=== PATIENT | female | born 1985 | race Caucasian/White ===

== ENCOUNTER 2019-03-02 17:12 | Emergency (ER) | payer OTHER ==
[~2019-03-02] VITALS: Ht 162.6 cm; Wt 90.7 kg
[2019-03-02 17:27] LABS: ABSOLUTE NEUTROPHILS 4.3 thou/uL (1.4-8.2); BASOPHILS 0.4 % (0.0-2.0); EOSINOPHILS 0.5 % (0.0-3.0); HEMATOCRIT 35.6 % (37.0-47.0); HEMOGLOBIN 11.7 gm/dL (12.0-15.0); LYMPHOCYTES 28.5 % (24.0-44.0); MCH 24.7 pg (26.0-34.0); MCHC 32.8 g/dL (28.0-37.0); MCV 75.2 fL (80.0-100.0); MONOCYTES 5.7 % (1.0-8.0); PLATELET COUNT 243 thou/uL (150-400); POLYS 64.9 % (36.0-66.0); RBC 4.74 mil/uL (4.20-5.00); RDW 13.5 % (10.5-14.5); WBC 6.7 thou/uL (4.0-11.0)
[2019-03-02 17:36] LABS: ANION GAP 10 mmol/L (7-16); BUN 11 mg/dL (7-18); CALCIUM 8.9 mg/dL (8.5-10.1); CHLORIDE 106 mmol/L (98-107); CO2 27 mmol/L (21-32); CREATININE 0.8 mg/dL (0.6-1.0); GLUCOSE 93 mg/dL (74-106); POTASSIUM 3.4 mmol/L (3.5-5.1); SODIUM 143 mmol/L (136-145)
[2019-03-02 17:46] LABS: ALBUMIN 3.6 g/dL (3.4-5.0); SGOT 11 U/L (15-37); SGPT 15 U/L (30-65); TOTAL BILIRUBIN 0.3 mg/dL (<0.1-1.0); TOTAL PROTEIN 7.2 g/dL (6.4-8.2); TROPONIN-I <0.06 ng/mL (<0.06)
[2019-03-02 17:57] LABS: URINE BILIRUBIN NEGATIVE (Negative); URINE BLOOD 3+ (Negative); URINE COLOR YELLOW; URINE GLUCOSE-RANDOM* NEGATIVE (Negative); URINE KETONES NEGATIVE (Negative); URINE LEUKOCYTES-REFLEX NEGATIVE (Negative); URINE PROTEIN (DIPSTICK) 1+ (Negative); URINE SPECIFIC GRAVITY >= 1.030 (1.005-1.035); URINE UROBILINOGEN 0.2 E.U./dl (0.2-1.0)
[2019-03-02 17:58] LABS: URINE CLARITY SL HAZY; URINE NITRITE-REFLEX POSITIVE (Negative)
[2019-03-02 18:05] LABS: CASTS None Seen /LPF (None Seen); MUCUS >6 Heavy strn/LPF (None Seen); SQUAMOUS >10 Many /LPF (0-3)
[2019-03-02 18:06] LABS: BACTERIA-REFLEX >30 Many /HPF (None Seen); CRYSTALS None Seen /LPF (None Seen); URINE WBC-REFLEX 0-5 Rare /HPF (0-5)
[2019-03-02] MEDS ORDERED: KEFLEX500 M1 PO (20:29)
[2019-03-02] MEDS ORDERED: MECLIZINE HCL25 MG PO (20:29)
[2019-03-02 20:59] VITALS: BP 103/61
--- NOTE | 2019-03-03 09:33 | EKG ---
[address] [address] ELECTROCARDIOGRAM REPORT Name: IVORY VICTORIA Room #: MUNDO Clemens#: [id number] ������������������ Admission: 03/02/19 ������������������ Attend Phys: Discharge: 03/02/19 ������������������ Date of : 83 Report #: [id number] ����������������������������������������������������������������� [id number] THIS REPORT FOR: //name// [facility] ED Test Date: 2019-03-02 Test Time: 17:48:57 Pat Name: IVORY VICTORIA Department: Room: Gender: F [employer]: [email or web address] : 1985 Requested By: Alexi Gerber Order Number: [id number] MD: Daniel Gore Measurements Intervals [place] Rate: 65 P: 60 NV: 146 QRS: 1 QRSD: 112 T: 22 QT: 405 QTc: 422 Interpretive Statements Sinus rhythm Nonspecific T-wave abnormality No previous ECG available for comparison Electronically Signed On 03-03-2019 9:33:05 CDT by Daniel Gore [email or web address] ��������������������������������������������� <ELECTRONICALLY SIGNED> ���������������������������������������� By: Daniel Gore MD ��������������������������������������������� 03/03/19 0933 1748 1748 Daniel Gore MD /EPI
== END 2019-03-02 21:00 | disposition home or self-care (01) ==
LOC: ER 17:12
PROVIDERS: Physician Assistant
DX: N39.0 Urinary tract infection, site not specified (principal); R42 Dizziness and giddiness

== ENCOUNTER 2020-08-31 20:12 | Emergency (ER) | payer OTHER ==
[~2020-08-31] VITALS: Ht 160 cm; Wt 101.2 kg
--- NOTE | ~2020-08-31 | EKG ---
[facility] [place] [address] ELECTROCARDIOGRAM REPORT Name: IVORY VICTORIA Room #: [facility] [id number] Admission: 08/31/20 Attend Phys: Discharge: 08/31/20 Date of : 83 Report #: [id number] THIS REPORT FOR: cc: LEA Mckeon family physician/PCP LEA Mckeon family physician/PCP Chandler Arteaga MD ~ THIS REPORT FOR: //name// [facility] ED Test Date: 2020-08-31 Test Time: 20:23:58 Pat Name: IVORY VICTORIA Department: Room: Gender: F Clinical Quality Rn: : 1985 Requested By: Layne Delcid Order Number: [id number] MD: Measurements Intervals [place] Rate: 88 P: 46 TX: 148 QRS: -1 QRSD: 99 T: 35 QT: 365 QTc: 442 Interpretive Statements Sinus rhythm Compared to ECG 03/02/2019 17:48:57 T-wave abnormality no longer present [email or web address] By: 22 2023 Epiphany EpiphanyMD /EPI
[~2020-08-31 20:12] MED LIST: KEFLEX500 M1 PO; MECLIZINE HCL25 MG PO
[2020-08-31 22:15] VITALS: BP 124/85
== END 2020-08-31 22:16 | disposition home or self-care (01) ==
LOC: ER 20:12
DX: U07.1 COVID-19 (principal); J06.9 Acute upper respiratory infection, unspecified

== ENCOUNTER 2021-09-06 18:30 | Emergency (ER) | payer OTHER ==
[~2021-09-06] VITALS: Ht 152.4 cm; Wt 99.8 kg
[2021-09-06 19:48] LABS: URINE BILIRUBIN NEGATIVE (Negative); URINE BLOOD NEGATIVE (Negative); URINE CLARITY CLEAR; URINE COLOR YELLOW; URINE GLUCOSE-RANDOM* NEGATIVE (Negative); URINE KETONES NEGATIVE (Negative); URINE LEUKOCYTES-REFLEX NEGATIVE (Negative); URINE NITRITE-REFLEX NEGATIVE (Negative); URINE PROTEIN (DIPSTICK) NEGATIVE (Negative); URINE SPECIFIC GRAVITY <= 1.005 (1.005-1.035); URINE UROBILINOGEN 0.2 E.U./dl (0.2-1.0)
[2021-09-06 19:55] LABS: CALCIUM 8.8 mg/dL (8.5-10.1); POTASSIUM 3.3 mmol/L (3.5-5.1)
[2021-09-06 21:37] LABS: CALCIUM 8.3 mg/dL (8.5-10.1); CREATININE 0.9 mg/dL (0.6-1.0); POTASSIUM 3.7 mmol/L (3.5-5.1)
[2021-09-06] MEDS ORDERED: MOBIC7.5 MG PO (21:45)
[2021-09-06 22:23] VITALS: BP 128/64
== END 2021-09-06 22:24 | disposition home or self-care (01) ==
LOC: ER 18:30
PROVIDERS: Nurse Practitioner
DX: M79.671 Pain in right foot (principal); E87.6 Hypokalemia; E87.1 Hypo-osmolality and hyponatremia